=== PATIENT | female | born 1980 | race Caucasian/White ===

== ENCOUNTER 2022-08-07 13:38 | Emergency (ER) | payer BC, SELFPAY ==
[2022-08-07 14:05] VITALS: BP 121/79; PULSE 107; RESP 16; TEMP 36.5; O2SAT 97; BMI 27.4
--- NOTE | 2022-08-07 14:10 | ED_ITS ---
HPI - General Adult General Time Seen by Provider: 14:10 Date Seen: 08/07/22 Chief complaint: Chest Pain Stated complaint: R arm numb, headache, chest discomfort Time Seen by Provider: 08/07/22 14:03 Source: patient and RN notes reviewed Mode of arrival: ambulatory Limitations: no limitations History of Present Illness HPI narrative: Patient is a 41-year-old female that awoke with her right arm completely numb and this morning. She felt she just slept on it wrong. Throughout the day though she has felt the return of a pins and needles sensation at times. She feels like she needs to move the elbow in feels like she is feeling like she needs to move the arm. She admits she has anxiety and just at times feels like she has to take a deep breath. She cannot say that there is any chest pain or chest discomfort with this. She also awoke with significant headache. It is in a band around the head. She does get headaches. She has chronic neck pain, states her neck hurts every day. Denies any trauma. Has not been sick with any recent cough or cold symptoms. She was on a trip in about 2 weeks after coming home from that, some of the people were coming down with COVID. She had no symptoms but tested when they were positive and she herself was not. 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 She still has the tinnitus. No tobacco use, minimal social alcohol use. Related Data Home Medications Medication Instructions Recorded Confirmed multivitamin (Daily Multi-Vitamin 1 tab PO DAILY 08/07/22 08/07/22 tablet) Allergies Allergy/AdvReac Type Severity Reaction Status Date / Time No Known Drug Allergies Allergy Verified 08/07/22 14:04 Review of Systems Status of ROS: Reports: 10 or more systems reviewed and unremarkable except as noted in History and below PFSH PFS Social History Smoking Status: Never smoker Do you use any of these nicotine containing products: None Second hand tobacco smoke exposure: No How often do you have a drink containing alcohol: never How often do you have six or more drinks on one occasion: Never AUDIT-C Alcohol total score: 0 Non-prescribed substance use: denies use service: No Exam Const: Vital Signs, click to edit/add: Vital Signs - 24 hr 08/07/22 14:05 08/07/22 14:21 Temperature 97.7 F Pulse Rate [Right Pulse Oximeter] 107 H Respiratory Rate 16 Blood Pressure [Ri ght Upper Arm] 121/79 Pulse Oximetry 97 100 Oxygen Delivery Me thod Room Air Documenting provider has reviewed patient's vital signs: yes Common normals: no apparent distress, average body habitus, oriented x3, no limitations, healthy appearing, alert and well nourished General appearance: cooperative, comfortable, well kempt and well developed HENMT: Common normals: normocephalic, head/scalp atraumatic, hearing grossly normal bilaterally and external nose normal Head and scalp: normocephalic and atraumatic Nose: external nose normal Eye: Common normals: PERRL, EOMs intact bilaterally, conjunctivae normal and no scleral icterus Conjunctiva: conjunctiva(e) normal Pupil: PERRL Neck & C-Spine: Common normals: full ROM, no lymphadenopathy, supple, no meningeal signs, no JVD and thyroid normal Thyroid: thyroid normal Resp: Common normals: normal respiratory effort, no retractions, no use of accessory muscles and clear to auscultation bilaterally Auscultation: clear to auscultation bilaterally Cardio: Common normals: no JVD, regular rate, regular rhythm, S1 normal heart sound, S2 normal heart sound, no gallops, no clicks and no murmurs Rate: regular rate Rhythm: regular rhythm Heart sounds: S1 normal and S2 normal GI: Common normals: Normal to inspection, nondistended, normoactive bowel sounds present, soft to palpation, non-tender, no hepatosplenomegaly and no masses Palpation: soft and no hepatosplenomegaly Extremity: Other: She has full range of motion of her right arm, strength is normal and symmetrical in both upper extremities. She has good radial pulses bilaterally. She has normal light touch sensation bilaterally. Both hands have symmetric warmth, normal cap refill. Neuro: Common normals: oriented x3 Sensorium/orientation: alert Meningeal signs: no meningeal signs Psych: Appearance: well kempt Course Course Hospital Course: We have a patient presenting with her arm being asleep this morning upon awakening and some intermittent return or possibly residual neurologic symptoms. She has no associated headache currently with a history of headaches. She has her chest symptoms where she describes it as a hollow feeling, needing to catch her breath at times or take a deep breath. I agree that that certainly could be anxiety but have reviewed with her that it is easy enough to look at her troponin. I have already visualized her initial EKG and it is normal. Will have her on cardiac monitoring and pulse oximetry. Given that she has had surgery to remove her acoustic neuroma, her right arm symptoms which certainly seem like it is a peripheral issue, do think head CT is indicated to rule out any acute pathology. Have reviewed with her that we may need to do CT angio head and neck possibly in this workup. Will be doing a D-dimer. Reevaluation(s) Reevaluation #1: Reviewed with patient her CT findings. Reviewed that the cerebellar tonsils are commented to be low lying. My presumption is that with her MRIs of her head, this should have been picked up if she did have a Chiari malformation. She does have a headache disorder. Will give her a copy of her CT report and have discussed that she should follow up with Neurology. reviewed normal labs including troponin and D-dimer. Time: 17:05 Vital Signs Vital signs: Initial Vital Signs Temperature 97.7 F 08/07/22 14:05 Temperature Source Temporal Artery Scan 08/07/22 14:05 Pulse Rate 107 H 08/07/22 14:05 Respiratory Rate 16 08/07/22 14:05 Blood Pressure 121/79 08/07/22 14:05 Blood Pressure Mean 93 08/07/22 14:05 Pulse Oximetry 97 08/07/22 14:05 Oxygen Delivery Method Room Air 08/07/22 14:05 Vital Signs Temperature 97.7 F 08/07/22 14:05 Pulse Rate 107 H 08/07/22 14:05 Respiratory Rate 16 08/07/22 14:05 Blood Pressure 121/79 08/07/22 14:05 Pulse Oximetry 97 08/07/22 14:05 Oxygen Delivery Method Room Air 08/07/22 14:05 Temperature 97.7 F 08/07/22 14:05 Pulse Rate 107 H 08/07/22 14:05 Respiratory Rate 16 08/07/22 14:05 Blood Pressure 121/79 08/07/22 14:05 Pulse Oximetry 100 08/07/22 14:21 Oxygen Delivery Method Room Air 08/07/22 14:05 Medical Decision Making Lab Data Labs: Lab Results 08/07/22 08/07/2208/07/23 Range/Units 14:22 14:30 14:40 WBC 5.23 (4.50-11.00) K/uL RBC 3.97 L (4.00-5.20) m/uL Hgb 12.8 (12.0-16.0) gm/dL Hct 37.9 (33.0-51.0) % MCV 96 (80-100) fL MCH 32 (26-34) pg MCHC 34 (32-36) gm/dL RDW Coeff of Gisel 12.4 (11.5-15.5) % Plt Count 187 (140-440) K/uL Neut % (Auto) 58.1 (42.0-72.0) % Lymph % (Auto) 30.6 (20-44) % [place] % (Auto) 7.8 (0.0-11.0) % Eos % (Auto) 2.9 (0.0-7.0) % Baso % (Auto) 0.4 (0.0-3.0) % Neut # (Auto) 3.04 (1.7-7.0) K/uL Lymph # (Auto) 1.60 (0.90-2.90) K/uL [place] # (Auto) 0.40 (0.00-0.90) K/UL Eos # (Auto) 0.15 (0.00-0.50) K/uL Baso # (Auto) 0.02 (0.00-0.30) K/uL D-Dimer Quant (PE/DVT) < 0.27 (0.00-0.50) ug/ml Sodium 137 (135-149) mmol/L Potassium 3.7 (3.6-5.1) mmol/L Chloride 105 (96-114) mmol/L Carbon Dioxide 26 (20-32) mmol/L BUN 17 (5-24) mg/dL Creatinine 0.8 (0.5-1.5) mg/dL Estimated Creat Clear 95.24 Estimated GFR 96 ml/min Glucose 130 H (60-115) mg/dL Calcium 8.6 (8.4-10.6) mg/dL Total Bilirubin 0.5 (0.1-1.5) mg/dL AST 20 (12-35) U/L ALT 20 (4-35) U/L Alkaline Phosphatase 52 (40-150) U/L C-Reactive Protein 0.5 (0.5-1.0) mg/dL Total Protein 7.0 (6.0-8.3) g/dL Albumin 4.3 (3.3-5.0) g/dL POC Troponin I 0.00 L (0.01-0.04) ng/ml Imaging Data CT scan - head: Attestation: I have reviewed the pertinent imaging results. My impression: Have visualized in do not see any acute bleed or mass, await Radiology over- read. Radiologist's impression: Patient: [facility] Facility:?[facility] Patient ID:?[id number] :?[id number] Study:?CT Head w/o Contrast-08/07/2022 3:06:12 PM Ordering Physician:Sb Camarillo Final Report: INDICATION: Headache, right arm numbness/tingling. History of right acoustic neuroma. COMPARISON: None available. TECHNIQUE: CT of the head without IV contrast. Coronal and sagittal reconstructions. FINDINGS: No intracranial hemorrhage, mass effect, or evidence of acute infarct. No midline shift. No abnormal extra-axial fluid collections. Normal caliber ventricular system. Low lying cerebellar tonsils with crowding in the foramen magnum. Orbits and extraocular muscles are symmetric. The visualized paranasal sinuses and mastoid air cells are clear. Status post right retromastoid craniotomy for history of acoustic neuroma resection. No acute fracture identified. Soft tissues are unremarkable. IMPRESSION: 1. No acute intracranial findings. 2. Status post right retromastoid craniotomy for history of acoustic neuroma resection. 3. Mild cerebellar tonsillar ectopia. Please note that all CT scans at this facility use dose modulation, iterative reconstruction, and/or weight-based dosing when appropriate to reduce radiation dose to as low as reasonably achievable. Dictated by Alicia Torres MD @ 08/07/2022 3:40:40 PM (Electronic Signature) Chest x-ray: Attestation: I have reviewed the pertinent imaging results. My impression: No acute pathology on my preliminary review. Radiologist's impression: [facility]: [facility] Facility:?[facility] Patient ID:?[id number] :?1980 Study:?XRay Chest 1 view-08/07/2022 2:48:31 PM Ordering Physician:Sb Camarillo Final Report: INDICATION: Difficulty catching breath. TECHNIQUE: Chest 1 view. COMPARISON: Chest radiograph 05/18/2020. FINDINGS: No focal consolidation, pleural effusion, or pneumothorax. Normal heart size and pulmonary vascularity. The bones are unremarkable. IMPRESSION: No acute cardiopulmonary findings. Dictated by Alicia Torres MD @ 08/07/2022 3:15:19 PM (Electronic Signature) ECG Data Attestation: I personally reviewed and interpreted this ECG as follows: ( Normal sinus rhythm, 65 beats per minute. No pattern of ST segment changes or T-wave changes, isolated flipped T-waves V1. QT corrected 418 milliseconds.) Critical Care Time Critical Care Time Critical Care Time: No Discharge Plan Discharge Clinical Impression: Headache, Numbness and tingling of right arm Patient Disposition: Home, Self-Care Condition: Stable Instructions: Paresthesia (ED), General Headache (ED) Additional Instructions: Your arm symptoms are very likely just residual from a compression of the nerve in the arm when you slept. Try to avoid putting compression on the nerve in this arm if you can at all help doing so when you sleep. I would recommend seen if any of your prior MRIs of your head show any concerns for the cerebellum, specifically the tonsils of the cerebellum lying low in the canal. If there is comment of this some prior MRIs, would take MRI and CT reports and follow-up with Neurology. Recommend getting a follow-up appointment with your primary care provider to review CT and see if Neurology referral is recommended. Activity Level: Activity as Tolerated Prescriptions: No Action multivitamin [Daily Multi-Vitamin] Tablet 1 tab PO DAILY Stand Alone Forms: MyHealth Info Instructions
[2022-08-07 14:21] VITALS: O2SAT 100
--- NOTE | 2022-08-07 14:21 | CRLHL7_ITS ---
For Patients: As a result of the Century Cures Act, medical imaging exams and procedure reports are released immediately into your electronic medical record. You may view this report before your referring provider. If you have questions, please contact your health care provider. INDICATION: Difficulty catching breath. TECHNIQUE: Chest 1 view. COMPARISON: Chest radiograph 05/18/2020. FINDINGS: No focal consolidation, pleural effusion, or pneumothorax. Normal heart size and pulmonary vascularity. The bones are unremarkable. IMPRESSION: No acute cardiopulmonary findings. Dictated by Alicia Torres MD @ 08/07/2022 3:15:19 PM (Electronically Signed)
--- NOTE | 2022-08-07 14:22 | CRLHL7_ITS ---
For Patients: As a result of the Century Cures Act, medical imaging exams and procedure reports are released immediately into your electronic medical record. You may view this report before your referring provider. If you have questions, please contact your health care provider. INDICATION: Headache, right arm numbness/tingling. History of right acoustic neuroma. COMPARISON: None available. TECHNIQUE: CT of the head without IV contrast. Coronal and sagittal reconstructions. FINDINGS: No intracranial hemorrhage, mass effect, or evidence of acute infarct. No midline shift. No abnormal extra-axial fluid collections. Normal caliber ventricular system. Low lying cerebellar tonsils with crowding in the foramen magnum. Orbits and extraocular muscles are symmetric. The visualized paranasal sinuses and mastoid air cells are clear. Status post right retromastoid craniotomy for history of acoustic neuroma resection. No acute fracture identified. Soft tissues are unremarkable. IMPRESSION: 1. No acute intracranial findings. 2. Status post right retromastoid craniotomy for history of acoustic neuroma resection. 3. Mild cerebellar tonsillar ectopia. Please note that all CT scans at this facility use dose modulation, iterative reconstruction, and/or weight-based dosing when appropriate to reduce radiation dose to as low as reasonably achievable. Dictated by Alicia Torres MD @ 08/07/2022 3:40:40 PM (Electronically Signed)
[2022-08-07 14:52] LABS: Basophils Absolute Auto 0.02 K/uL (0.00-0.30); Basophils Percent Auto 0.4 % (0.0-3.0); Eosinophils Absolute Auto 0.15 K/uL (0.00-0.50); Eosinophils Percent Auto 2.9 % (0.0-7.0); Hematocrit 37.9 % (33.0-51.0); Hemoglobin* 12.8 gm/dL (12.0-16.0); Immature Granulocytes Abs Auto 0.01 K/uL (0.00-0.30); Immature Granulocytes Pct Auto 0.2 %; Lymphocytes Percent Auto 30.6 % (20-44); Mean Corpuscular HGB Conc 34 gm/dL (32-36); Mean Corpuscular Hemoglobin 32 pg (26-34); Mean Corpuscular Volume 96 fL (80-100); Monocytes Percent Auto 7.8 % (0.0-11.0); Neutrophils Absolute Auto 3.04 K/uL (1.7-7.0); Neutrophils Percent Auto 58.1 % (42.0-72.0); Platelet Count* 187 K/uL (140-440); RDW Coefficient of Variation % 12.4 % (11.5-15.5); Red Blood Count 3.97 m/uL (4.00-5.20); White Blood Count* 5.23 K/uL (4.50-11.00)
[2022-08-07 14:53] LABS: Slide Review Reflex No
[2022-08-07 15:03] LABS: Albumin* 4.3 g/dL (3.3-5.0); Chloride* 105 mmol/L (96-114)
[2022-08-07 15:04] LABS: Potassium* 3.7 mmol/L (3.6-5.1); Sodium* 137 mmol/L (135-149)
[2022-08-07 15:06] LABS: Bilirubin Total* 0.5 mg/dL (0.1-1.5); Creatinine* 0.8 mg/dL (0.5-1.5); Est. Creatinine Clearance* 95.24; Estimated Glomerular Filt Rate 96 ml/min
[2022-08-07 15:07] LABS: Alanine Aminotransferase* 20 U/L (4-35); Alkaline Phosphatase* 52 U/L (40-150); Aspartate Amino Transferase* 20 U/L (12-35); Blood Urea Nitrogen* 17 mg/dL (5-24); Calcium* 8.6 mg/dL (8.4-10.6); Carbon Dioxide* 26 mmol/L (20-32); Glucose* 130 mg/dL (60-115)
[2022-08-07 15:09] LABS: C Reactive Protein* 0.5 mg/dL (0.5-1.0)
[2022-08-07 15:14] LABS: D Dimer Quantitative* < 0.27 ug/ml (0.00-0.50)
== END 2022-08-07 18:29 | disposition home or self-care (01) ==
PROVIDERS: Emergency Provider Family Medicine; PCP Physician Assistant Medical
DX: R51.9 Headache, unspecified (principal); R20.0 Anesthesia of skin
CPT/HCPCS: 36415; 70450; 71045; 80053; 84484; 85025; 85379; 86140; 93005; 94761; 99284; 99285

== ENCOUNTER 2022-11-14 09:56 | Outpatient (CLI) | payer BC, SELFPAY | END 2022-11-14 09:57 | disposition home or self-care (01) | LOC: NFLDREF 11-15 07:15 | PROVIDERS: PCP Physician Assistant Medical; Referring Provider Physician Assistant Medical; Visit Provider Physician Assistant Medical | DX: Z00.00 Encounter for general adult medical examination without abnormal findings (principal); E78.5 Hyperlipidemia, unspecified; R63.5 Abnormal weight gain; M25.50 Pain in unspecified joint; L98.9 Disorder of the skin and subcutaneous tissue, unspecified | CPT/HCPCS: 80053; 80061; 82306; 84443 ==

== ENCOUNTER 2023-01-22 17:38 | Outpatient (CLI) | payer BC, SELFPAY ==
--- NOTE | 2023-01-22 18:00 | CRLHL7_ITS ---
For Patients: As a result of the Century Cures Act, medical imaging exams and procedure reports are released immediately into your electronic medical record. You may view this report before your referring provider. If you have questions, please contact your health care provider. BILATERAL SCREENING MAMMOGRAM WITH COMPUTER-AIDED DETECTION AND TOMOSYNTHESIS TECHNIQUE: CC and MLO views were obtained. These mammographic images have been obtained using full-field digital technique. These mammographic images were interpreted with the benefit of computer-aided detection. Breast Tomosynthesis was used in this interpretation. COMPARISON FILM: 10/28/2020. FINDINGS: The breasts are heterogeneously dense, which may obscure small masses IMPRESSION: There is no radiographic evidence for malignancy. ASSESSMENT: BI-RADS Category 1: Negative RECOMMENDATION: Routine screening mammogram in 1 year. A lay language report of this examination will be provided to the patient. Chase Brown M.D. Diagnostic Radiologist [email or web address] JENNI/Dictated by: Chase Brown MD @ 01/23/2023 10:53:00 AM (Electronically Signed)
== END 2023-01-22 17:39 | disposition home or self-care (01) ==
LOC: MAMMO 17:39
PROVIDERS: PCP Physician Assistant Medical; Visit Provider Physician Assistant Medical
DX: Z12.31 Encounter for screening mammogram for malignant neoplasm of breast (principal); R92.2 Inconclusive mammogram
CPT/HCPCS: 77063; 77067

== ENCOUNTER 2024-01-03 08:14 | Outpatient (CLI) | payer BC, SELFPAY ==
--- OUTSIDE RECORDS SUMMARY | 2024-01-09 05:41 | XMS_ITS | Encounter Summary ---
Author Organization [facility] Address [address] [place] [address]. [place] [address] Care Team Providers Care Museum Docent Name Role Phone Jeniffer Jeff PA-C Primary Care Provider Nilo Pate MD Unavailable [phone] Mahesh Shane DPM Unavailable [phone] Iraida Bustillo MD Unavailable [phone] Christo Trejo MD Unavailable [phone] Genna Jo MD Unavailable [phone] Genna Jo MD Unavailable [phone] Reason for Visit * Reason Onset Date Comments Appointment 04/05/2020 Encounter Details Date Type Department Care Team (Late st Contact Info) Description 04/05/2020 Telephone [facility] [place] [address] [facility] [address] 4th [place] [address] Iraida Bustillo MD 420 [facility] 396 [place] [address] Appointment Social History Tobacco Use Types [...] Taken: Other: ent Travel Screening: Not Applicable MCORN SORTER documented in this encounter Plan of Treatment Not on file documented as of this encounter Visit Diagnoses Not on filedocumented in this encounter Additional Health Concerns Assessment Noted Time PHQ-9 Depression Total Score: 10 019 8:11 AM CDT documented as of this encounter Care Teams Museum Docent Relationship Specialty Start Date End Date Jeniffer Jeff PA-C [facility] [address] [place] [address] PCP - General Physician Welder Metal Fab 02/05/19 Nilo Pate MD [address] [place] [address] Assigned Neuroscience Provider 02/19/20 11/10/21 Mahesh Shane DPM [id number] [place] [address] [address] [place] [address] Assigned Musculoskeletal Provider 02/19/20 05/06/21 Iraida Bustillo MD [address] [place] [address] 396 [place] [address] Assigned Surgical Provider 02/19/20 03/18/21 Christo Trejo MD [address] [place], [place] [address] Assigned OBGYN Provider 02/19/2003/18 Genna Jo MD [address] [id number] Facial Plastic and Reconstructive Surgery 10/27/20 Genna Jo MD [address] [phone] Assigned Surgical Provider 03/19/21 documented as of this encounter
--- OUTSIDE RECORDS SUMMARY | 2024-01-09 05:41 | XMS_ITS | Encounter Summary ---
Author Organization [facility] Address [address] [place] [address]. [place] [address] Care Team Providers Care Record Librarian Name Role Phone Jeniffer Jeff PA-C Primary Care Provider Genna Jo MD Unavailable [phone] Genna Jo MD Unavailable [phone] Encounter Details Date Type Department Care Team (Late st Contact Info) Description 11/06/2022 [facility] Medical Advice [facility] [address] 4th [place] [address] Era Allen RN Social History [...] documented as of this encounter Care Teams Record Librarian Relationship Specialty Start Date End Date Jeniffer Jeff PA-C [facility] [address] [place] [address] PCP - General Physician Paper Cone Grader 02/05/19 Genna Jo MD 420 [facility] [address] [place] [address] Facial Plastic and Reconstructive Surgery 10/27/20 Genna Jo MD 420 [facility] [address] [place] [address] Assigned Surgical Provider 03/19/21 documented as of this encounter
--- OUTSIDE RECORDS SUMMARY | 2024-01-09 05:41 | XMS_ITS | Encounter Summary ---
Author Organization [facility] Address [address] [place] [address] Care Team Providers Care Suppression Crew Leader Name Role Phone Jeniffer Jeff PA-C Primary Care Provider Nilo Pate MD Unavailable [phone] Mahesh Shane DPM Unavailable [phone] Iraida Bustillo MD Unavailable [phone] Christo Trejo MD Unavailable [phone] Genna Jo MD Unavailable [phone] Genna Jo MD Unavailable [phone] Encounter Details Date Type Department Care Team (Late st Contact Info) Description 06/05/2019 [facility] [place] [facility] Audiology [address] [address] Kaylen Chairez, AuD 909 [place] [address] Social History Tobacco Use Types [...] documented as of this encounter Care Teams Suppression Crew Leader Relationship Specialty Start Date End Date Jeniffer Jeff PA-C [facility] [address] [place] [address] PCP - General Physician Blacktop Spreader 02/05/19 Nilo Pate MD [address] [place] [address] 789345 Assigned Neuroscience Provider 02/19/20 11/10/21 Mahesh Shane DPM [address] [facility] [address] [place] [address] Assigned Musculoskeletal Provider 02/19/20 05/06/21 Iraida Bustillo MD [address] [place] [address] 750875 Assigned Surgical Provider 02/19/20 03/18/21 Christo Trejo MD [address] [place] [address] 804944 Assigned OBGYN Provider 02/19/2003/18 Genna Jo MD [address] [place] [address] 566735 Facial Plastic and Reconstructive Surgery 10/27/20 Genna Jo MD [address] [place] [address] 396 [place] [address] Assigned Surgical Provider 03/19/21 documented as of this encounter
--- OUTSIDE RECORDS SUMMARY | 2024-01-09 05:41 | XMS_ITS | Clinical Summary ---
Author Organization [facility] Address [address] [place] [address] Care Team Providers Care Palliative Nurse Name Role Phone Jeniffer Jeff PA-C Primary Care Provider Genna Jo MD Unavailable [phone] Genna Jo MD Unavailable [phone] Allergies Active Allergy Reactions Criticality Noted Date [...] Comments Blood Pressure 111/75 06/13/2022 2:33 PM FITTING ROOM SUPERVISOR Pulse 78 06/13/2022 2:33 PM FITTING ROOM SUPERVISOR Temperature 37 ??C (98.6 ??F) 12/07/2020 2:17 PM CDT Respiratory Rate 16 05/10/2020 4:08 PM FITTING ROOM SUPERVISOR Oxygen Saturation 97% 06/13/2022 2:33 PM FITTING ROOM SUPERVISOR Inhaled Oxygen Concentration - - Weight 79.8 kg (176 lb) 06/13/2022 2:33 PM FITTING ROOM SUPERVISOR Height 172.7 cm (5' 8) 06/13/2022 2:33 PM FITTING ROOM SUPERVISOR Body Mass Index 26.76 06/13/2022 2:33 PM FITTING ROOM SUPERVISOR Plan of Treatment Health Maintenance Due Date [...] AM CDT Iraida Bustillo MD LAB - [facility] PO CT POINT OF CARE TEST, GLUCOSE from Last 3 Months or Most Recently Relevant to Health Maintenance Care Teams Palliative Nurse Relationship Specialty Start Date End Date Jeniffer Jeff PA-C [facility] [address] [place] [address] PCP - General Physician Presser Machine 02/05/19 Genna Jo MD [address] [place] [address] 926665 Facial Plastic and Reconstructive Surgery 10/27/20 Genna Jo MD [address] [place] [address] [id number] Assigned Surgical Provider 03/19/21
--- OUTSIDE RECORDS SUMMARY | 2024-01-09 05:41 | XMS_ITS | Referral Summary ---
Author Organization [facility] Address [address] [place] [address]. [place] [address] Care Team Providers Care Weatherstrip Machine Operator Name Role Phone Jeniffer Jeff PA-C Primary Care Provider Genna Jo MD Unavailable [phone] Genna Jo MD Unavailable [phone] Encounters Date Type Department Care Team Description [...] Comments Blood Pressure 111/75 06/13/2022 2:33 PM INSURANCE VERIFICATION CLERK Pulse 78 06/13/2022 2:33 PM INSURANCE VERIFICATION CLERK Temperature 37 ??C (98.6 ??F) 12/07/2020 2:17 PM CDT Respiratory Rate 16 05/10/2020 4:08 PM INSURANCE VERIFICATION CLERK Oxygen Saturation 97% 06/13/2022 2:33 PM INSURANCE VERIFICATION CLERK Inhaled Oxygen Concentration - - Weight 79.8 kg (176 lb) 06/13/2022 2:33 PM INSURANCE VERIFICATION CLERK Height 172.7 cm (5' 8) 06/13/2022 2:33 PM INSURANCE VERIFICATION CLERK Body Mass Index 26.76 06/13/2022 2:33 PM INSURANCE VERIFICATION CLERK Plan of Treatment Not on file Procedures [...] 02/07/2019 6:20 AM CDT Iraida Bustillo MD [facility] POINT OF CARE TEST, GLUCOSE from Last 3 Months or Most Recently Relevant to Health Maintenance Care Teams Weatherstrip Machine Operator Relationship Specialty Start Date End Date Jeniffer Jeff PA-C [facility] [address] [place] [address] PCP - General Physician English Language Arts Teacher 02/05/19 Genna Jo MD [address] [place] [address] Facial Plastic and Reconstructive Surgery 10/27/20 Genna Jo MD [address] [place] [address] Assigned Surgical Provider 03/19/21
--- OUTSIDE RECORDS SUMMARY | 2024-01-09 05:41 | XMS_ITS | Clinical Summary ---
Author Organization [email or web address] Address [place], [place] [address] Care Team Providers Care Mail Agent Name Role Phone Jeniffer Jeff PA-C Primary Care Provider [phone] Allergies Active Allergy Reactions Criticality Noted Date [...] Comments Blood Pressure 120/80 05/05/2020 12:59 PM ELECTRICAL APPRENTICE Pulse 67 05/05/2020 12:59 PM ELECTRICAL APPRENTICE Temperature 36.5 ??C (97.7 ??F) 05/05/2020 12:[address] Respiratory Rate 12 05/05/2020 12:59 PM ELECTRICAL APPRENTICE Oxygen Saturation 100% 05/05/2020 12:59 PM ELECTRICAL APPRENTICE Inhaled Oxygen Concentration - - Weight 81.6 kg (180 lb) 05/05/2020 12:59 PM ELECTRICAL APPRENTICE Height 172.7 cm (5' 8) 05/05/2020 12:59 PM ELECTRICAL APPRENTICE Body Mass Index 27.37 05/05/2020 12:59 PM ELECTRICAL APPRENTICE Plan of Treatment Health Maintenance Due Date [...] 16 Negative Negative 08/09/2021 11:24 AM CDT [facility] TYPE 18 Negative Negative 08/09/2021 11:24 AM CDT [facility] OTHER HIGH RISK TYPES Negative Negative 08/09/2021 11:24 AM CDT [facility] Other (Cervical/Vagina l) 08/04/2021 12:00 PM CDT 08/08/2021 7:34 AM CDT Narrative [facility] - 08/09/2021 11:24 AM CDT HPV types 16, 18, 31, 33, 35, 39, 45, 51, 52, 56, 58, 59, 66 and 68 DNA were undetectable or below the pre-set threshold. Methodology: Lilia Naty 4800 HPV Test Jeniffer Jeff PA-C MICROBIOLOGY [facility] [address] [place] [address], [place] from Last 3 Months or Most Recently Relevant to Health Maintenance Care Teams Mail Agent Relationship Specialty Start Date End Date Jeniffer Jeff PA-C [address] [place] [address] PCP - General Emergency Medicine 04/24/20
--- OUTSIDE RECORDS SUMMARY | 2024-01-09 05:41 | XMS_ITS | Encounter Summary ---
Author Organization [place] Address [address] [place] [address]. [place] [address] Care Team Providers Care Physician General Internal Medicine Name Role Phone Jeniffer Jeff PA-C Primary Care Provider Nilo Pate MD Unavailable + [phone] Mahesh Shane DPM Unavailable [phone] Iraida Bustillo MD Unavailable Christo Trejo MD Unavailable [phone] Genna Jo MD Unavailable [phone] Genna Jo MD Unavailable [phone] Encounter Details Date Type Department Care Team (Late st Contact Info) Description 12/20/2020 [facility] Medical Advice [facility] [place] 8[address] [facility] [address] 4th [place] [address] Genna Jo MD 420 [facility] 396 [place] [address] Social History Tobacco Use Types [...] documented as of this encounter Care Teams Physician General Internal Medicine Relationship Specialty Start Date End Date Jeniffer Jeff PA-C [facility] [address] [place] [address] PCP - General Physician Padding Machine Operator 02/05/19 Nilo Pate MD 909 [place], [place] [address] Assigned Neuroscience Provider 02/19/20 11/10/21 Mahesh Shane DPM [address] [facility] [address] [place] [address] Assigned Musculoskeletal Provider 02/19/20 05/06/21 Iraida Bustillo MD 420 [facility] 396 [place], [place] 6[address] Assigned Surgical Provider 02/19/20 03/18/21 Christo Trejo MD [address] [place] [address] 400 [place], [place] [address]234 Assigned OBGYN Provider 02/19/2003/18 Genna Jo MD [address] [id number] Facial Plastic and Reconstructive Surgery 10/27/20 Genna Jo MD [address] 395445 Assigned Surgical Provider 03/19/21 documented as of this encounter
--- OUTSIDE RECORDS SUMMARY | 2024-01-09 05:41 | XMS_ITS | Encounter Summary ---
Author Organization [facility] Address [address] [place] [address] Care Team Providers Care Build Master Name Role Phone Jeniffer Jeff PA-C Primary Care Provider Genna Jo MD Unavailable [phone] Genna Jo MD Unavailable [phone] Encounter Details Date Type Department Care Team [...] documented as of this encounter Care Teams Build Master Relationship Specialty Start Date End Date Jeniffer Jeff PA-C [facility] [address] [place], [place] [id number] PCP - General Physician Paperhanger Assistant 02/05/19 Genna Jo MD [address] [address] Facial Plastic and Reconstructive Surgery 10/27/20 Genna Jo MD [address] [address] Assigned Surgical Provider 03/19/21 documented as of this encounter
== END 2024-01-03 08:15 | disposition home or self-care (01) ==
LOC: NFLDREF 01-09 05:39
PROVIDERS: PCP Physician Assistant Medical; Referring Provider Physician Assistant Medical; Visit Provider Physician Assistant Medical
DX: Z00.00 Encounter for general adult medical examination without abnormal findings (principal); E78.5 Hyperlipidemia, unspecified; Z13.0 Encounter for screening for diseases of the blood and blood-forming organs and certain disorders involving the immune mechanism
CPT/HCPCS: 80053; 80061

== ENCOUNTER 2024-01-06 13:10 | Outpatient (CLI) | payer BC, SELFPAY ==
--- OUTSIDE RECORDS SUMMARY | 2024-01-06 13:12 | XMS_ITS | Referral Summary ---
Author Organization [facility] Address [address] [place] [address]. [place] [address] Care Team Providers Care Client Development Consultant Name Role Phone Jeniffer Jeff PA-C Primary Care Provider Genna Jo MD Unavailable [phone] Genna Jo MD Unavailable [phone] Encounters Date Type Department Care Team Description 11/29/2023 Travel from Last 3 Months Allergies Active Allergy Reactions Criticality Noted Date Comments Ondansetron Nausea 02/05/2019 Medications Medication Sig Dispensed Refills Start Date End Date Status psyllium (METAMUCIL) WAFR Take 2 Wafers by mouth daily Active Hospital, Clinic, or Other Facility Administered Medication Ordered Dose Route Frequency Start Date End Date Status botulinum toxin type A (BOTOX) 100 units injection 50 UnitsIndications:Hemifac ial spasm of right side of face 50 Units IM EVERY 3 MONTHS 12/22/2020 Active Active Problems Problem Noted Date Diagnosed Date 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 Acoustic neuroma 02/05/2019 Vestibular schwannoma 03/17/2013 Immunizations Name Administration Dates Next Due Influenza Vaccine >6 months,quad, PF 02/06/2019 Social History Tobacco Use Types Packs/Day Years Used Date Smoking Tobacco: Never Smokeless Tobacco: Never Tobacco Cessation:Counseling Given: No Alcohol Use Standard Drinks/Week Comments Yes 0 (1 standard drink = 0.6 oz pur e alcohol) Social PHQ-2 Answer Date Recorded PHQ-2 Score 0 06/14/2021 Adolescent Education Answer Date Record ed Getting School Help Needed Not on file 01/18 Sex and Gender Information Value Date Recorded Sex Assigned at Female 10/22/2020 2:38 PM CDT Gender Identity Female 10/22/2020 2:38 PM CDT Sexual Orientation Not on file Last Filed Vital Signs Vital Sign Reading Time Taken Comments Blood Pressure 111/75 06/13/2022 2:33 PM CONSERVATION SCIENTIST Pulse 78 06/13/2022 2:33 PM CONSERVATION SCIENTIST Temperature 37 ??C (98.6 ??F) 12/07/2020 2:17 PM CDT Respiratory Rate 16 05/10/2020 4:08 PM CONSERVATION SCIENTIST Oxygen Saturation 97% 06/13/2022 2:33 PM CONSERVATION SCIENTIST Inhaled Oxygen Concentration - - Weight 79.8 kg (176 lb) 06/13/2022 2:33 PM CONSERVATION SCIENTIST Height 172.7 cm (5' 8) 06/13/2022 2:33 PM CONSERVATION SCIENTIST Body Mass Index 26.76 06/13/2022 2:33 PM CONSERVATION SCIENTIST Plan of Treatment Not on file Procedures Procedure Name Priority Date/Time Associated Diagnosis Comments HC CHEMODENERVATION MUSCLE NECK UNILAT Routine 11/29/2023 10:28 AM CDT 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 Spasmodic torticollis HC CHEMODENERVATION, FACE NERVE MUSCLE Routine 11/29/2023 10:28 AM CDT 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 GLUCOSE BY METER Routine 02/07/2019 6:05 AM CDT Acute post-operative pain from Last 3 Months or Most Recently Relevant to Health Maintenance Results * Glucose by meter (02/07/2019 6:05 AM CDT) Glucose 97 70 - 99 mg/dL 02/07/2019 6:20 AM CDT POINT OF CARE TEST, GLUCOSE 02/07/2019 6:05 AM CDT 02/07/2019 6:20 AM CDT Iraida Bustillo MD [facility] POINT OF CARE TEST, GLUCOSE from Last 3 Months or Most Recently Relevant to Health Maintenance Care Teams Client Development Consultant Relationship Specialty Start Date End Date Jeniffer Jeff PA-C [facility] [address] [place] [address] PCP - General Physician [employer] 02/05/19 Genna Jo MD [address] [place] [id number] Facial Plastic and Reconstructive Surgery 10/27/20 Genna Jo MD [address] [place] [id number] Assigned Surgical Provider 03/19/21
--- OUTSIDE RECORDS SUMMARY | 2024-01-06 13:12 | XMS_ITS | Clinical Summary ---
Author Organization [facility] Address [place], [place] [address] Care Team Providers Care Spout Liner Helper Name Role Phone Jeniffer Jeff PA-C Primary Care Provider [phone] Allergies Active Allergy Reactions Criticality Noted Date Comments Ondansetron Nausea Only 02/05/2019 Medications No known medications Social History Tobacco Use Types Packs/Day Years Used Date Smoking Tobacco: Never Smokeless Tobacco: Never Tobacco Cessation:Counseling Given: No Alcohol Use Standard Drinks/Week Comments Yes 0 (1 standard drink = 0.6 oz pur e alcohol) Ocassionally Sex and Gender Information Value Date Recorded Sex Assigned at Not on file Gender Identity Not on file Sexual Orientation Not on file Obstetrics History Last Filed Vital Signs Vital Sign Reading Time Taken Comments Blood Pressure 120/80 05/05/2020 12:59 PM MEAT HANGER Pulse 67 05/05/2020 12:59 PM MEAT HANGER Temperature 36.5 ??C (97.7 ??F) 05/05/2020 12:[address] Respiratory Rate 12 05/05/2020 12:59 PM MEAT HANGER Oxygen Saturation 100% 05/05/2020 12:59 PM MEAT HANGER Inhaled Oxygen Concentration - - Weight 81.6 kg (180 lb) 05/05/2020 12:59 PM MEAT HANGER Height 172.7 cm (5' 8) 05/05/2020 12:59 PM MEAT HANGER Body Mass Index 27.37 05/05/2020 12:59 PM MEAT HANGER Plan of Treatment Health Maintenance Due Date Last Done Comments Tdap 1993 Depression screening for age 12+ 1994 HIV for age 15-65 1997 BMI (ht and wt on same day) for age 18+ 2000 Hepatitis C screening for ag e 18-79 2000 Tetanus booster 2002 COVID-19 vaccine series (2022-24 season) 2023 Influenza for age 9-49 12/29/2023 Pap test for age 21-65 08/04/2024 , 08/04/2021, 06/30/2018 Pneumococcal series for age 6-64 Aged Out No longer eligible b ased on patient's age to complete this topic Procedures Procedure Name Priority Date/Time Associated Diagnosis Comments HPV THIN PREP Routine 08/04/2021 12:00 PM CDT from Last 3 Months or Most Recently Relevant to Health Maintenance Results * HPV HIGH RISK (08/04/2021 12:00 PM CDT) TYPE 16 Negative Negative 08/09/2021 11:24 AM CDT [facility] TYPE 18 Negative Negative 08/09/2021 11:24 AM CDT [facility] OTHER HIGH RISK TYPES Negative Negative 08/09/2021 11:24 AM CDT [facility] Other (Cervical/Vagina l) 08/04/2021 12:00 PM CDT 08/08/2021 7:34 AM CDT Narrative [facility] - 08/09/2021 11:24 AM CDT HPV types 16, 18, 31, 33, 35, 39, 45, 51, 52, 56, 58, 59, 66 and 68 DNA were undetectable or below the pre-set threshold. Methodology: Lilia Naty 4800 HPV Test Jeniffer Jeff PA-C MICROBIOLOGY [facility] [address] [place] [address], [place] from Last 3 Months or Most Recently Relevant to Health Maintenance Care Teams Spout Liner Helper Relationship Specialty Start Date End Date Jeniffer Jeff PA-C [address] [place] [address] PCP - General Emergency Medicine 04/24/20
--- OUTSIDE RECORDS SUMMARY | 2024-01-06 13:12 | XMS_ITS | Clinical Summary ---
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 Encounters Date Type Department Care Team Description 11/29/2023 Travel from Last 3 Months Immunizations Name Administration Dates Next Due Influenza Vaccine >6 months,quad, PF 02/06/2019 Family History Medical History Relation Comments Hyperlipidemia Brother No Known Problems Father Hypertension Mother Rheumatoid Arthritis Mother Relation Status Comments Brother Father Alive Mother Alive Social History Tobacco Use Types Packs/Day Years [...] Comments Blood Pressure 111/75 06/13/2022 2:33 PM PENCIL INSPECTOR Pulse 78 06/13/2022 2:33 PM PENCIL INSPECTOR Temperature 37 ??C (98.6 ??F) 12/07/2020 2:17 PM CDT Respiratory Rate 16 05/10/2020 4:08 PM PENCIL INSPECTOR Oxygen Saturation 97% 06/13/2022 2:33 PM PENCIL INSPECTOR Inhaled Oxygen Concentration - - Weight 79.8 kg (176 lb) 06/13/2022 2:33 PM PENCIL INSPECTOR Height 172.7 cm (5' 8) 06/13/2022 2:33 PM PENCIL INSPECTOR Body Mass Index 26.76 06/13/2022 2:33 PM PENCIL INSPECTOR Plan of Treatment Health Maintenance Due Date Last Done Comments ADVANCE CARE PLANNING 1982 ANNUAL REVIEW OF HM ORDERS 1982 MAMMO SCREENING 1982 YEARLY PREVENTIVE VISIT 1982 HIV SCREENING 1997 HEPATITIS C SCREENING 2000 HEPATITIS B IMMUNIZATION (1 of 3 - 19+ 3-dose series) 2001 GLUCOSE 02/07/2022 02/07/2019, 01/27, 02/06/2019, Additional history exists LIPID 2022 PHQ-2 (once per calendar year) 2023 06/14/2021, 03/08/2021, 12/07/2020, Additional history exists COVID-19 Vaccine ( season) 2023 04/25/2021, 08/04/2020 INFLUENZA VACCINE (#1) 2023 9, 02/27/2017, 01/19/2016, Additional history exists PAP 08/04/2024 08/04/2021, 08/04/2021 DTAP/TDAP/TD IMMUNIZATION (5 - Td or Tdap) 12/06/2029 12/07/2019, 03/05/2016, 09/01/2007, Additional history exists MENINGITIS IMMUNIZATION Aged Out 11/05/2000 No l onger eligible based on patient's age to complete this topic HPV IMMUNIZATION Aged Out No longer e ligible based on patient's age to complete this topic Pneumococcal Vaccine: Pediatrics (0 to 5 Years) and At-Risk Patients (6 to 64 Years) Aged Out No longer eligible based on patient's age to complete this topic RSV MONOCLONAL ANTIBODY Aged Out No l onger eligible based on patient's age to complete this topic [...] 02/07/2019 6:20 AM CDT Iraida Bustillo MD LAB - [facility] PO CT POINT OF CARE TEST, GLUCOSE from Last 3 Months or Most Recently Relevant to Health Maintenance Care Teams Shuttle Spotter Relationship Specialty Start Date End Date Jeniffer Jeff PA-C [facility] [address] [place] [address] PCP - General Physician [employer] Engineer 02/05/19 Genna Jo MD [address] [place] [address] 481995 Facial Plastic and Reconstructive Surgery 10/27/20 Genna Jo MD [address] [place] [address] [id number] Assigned Surgical Provider 03/19/21
--- OUTSIDE RECORDS SUMMARY | 2024-01-06 13:13 | XMS_ITS | Encounter Summary ---
Author Organization [facility] Address [address] [place] [address] Care Team Providers Care Budget Coordinator Name Role Phone Jeniffer Jeff PA-C Primary Care Provider Genna Jo MD Unavailable [phone] Genna Jo MD Unavailable [phone] Encounter Details Date Type Department Care Team (Latest Contact Info) Description 11/29/2023 Travel Social History Tobacco Use Types Packs/Day Years Used Date Smoking Tobacco: Never Smokeless Tobacco: Never Alcohol Use Standard Drinks/Week Comments Yes 0 [...] PM CDT Sexual Orientation Not on file documented as of this encounter Plan of Treatment Not on file documented as of this encounter Visit Diagnoses Not on filedocumented in this encounter Additional Health Concerns Assessment Noted Time PHQ-9 Depression Total Score: 10 019 8:11 AM CDT documented as of this encounter Care Teams Budget Coordinator Relationship Specialty Start Date End Date Jeniffer Jeff PA-C [facility] [address] [place], [place] [id number] PCP - General Physician Fuel Cell Repairer 02/05/19 Genna Jo MD [address] [address] Facial Plastic and Reconstructive Surgery 10/27/20 Genna Jo MD [address] [address] Assigned Surgical Provider 03/19/21 documented as of this encounter
--- OUTSIDE RECORDS SUMMARY | 2024-01-06 13:13 | XMS_ITS | Encounter Summary ---
Author Organization [facility] Address [address] [place] [address] Care Team Providers Care Manager Of International Name Role Phone Jeniffer Jeff PA-C Primary Care Provider Nilo Pate MD Unavailable [phone] Mahesh Shane DPM Unavailable [phone] Iraida Bustillo MD Unavailable [phone] Christo Trejo MD Unavailable [phone] Genna Jo MD Unavailable [phone] Genna Jo MD Unavailable [phone] Encounter Details Date Type Department Care Team (Late st Contact Info) Description 06/05/2019 [facility] [place] Medical Advice [facility] Audiology [address] [address] Kaylen Chairez, AuD [address] [place] [address] Social History Tobacco Use Types Packs/Day Years Used Date Smoking Tobacco: Never Smokeless Tobacco: Never Alcohol Use Standard Drinks/Week Comments Yes 0 (1 standard drink = 0.6 oz pur e alcohol) Social PHQ-2 Answer Date Recorded PHQ-2 Score 0 02/24/2019 Sex and Gender Information Value Date Recorded [...] documented as of this encounter Care Teams Manager Of International Relationship Specialty Start Date End Date Jeniffer Jeff PA-C [facility] [address] [place] [address] PCP - General Physician Box Stamper 02/05/19 Nilo Pate MD [address] [place] [address] 357735 Assigned Neuroscience Provider 02/19/20 11/10/21 Mahesh Shane DPM [address] [facility] [address] [place] [address] Assigned Musculoskeletal Provider 02/19/20 05/06/21 Iraida Bustillo MD [address] [place] [address] [id number] Assigned Surgical Provider 02/19/20 03/18/21 Christo Trejo MD [address] [place] [address] [id number] Assigned OBGYN Provider 02/19/2003/18 Genna Jo MD [address] [place] [address] 381475 Facial Plastic and Reconstructive Surgery 10/27/20 Genna Jo MD [address] [place] [address] [address] [place] [address] Assigned Surgical Provider 03/19/21 documented as of this encounter
--- OUTSIDE RECORDS SUMMARY | 2024-01-06 13:13 | XMS_ITS | Encounter Summary ---
Author Organization [facility] Address [address] [place] [address]. [place] [address] Care Team Providers Care Lion Hunter Name Role Phone Jeniffer Jeff PA-C Primary Care Provider Genna Jo MD Unavailable [phone] Genna Jo MD Unavailable [phone] Encounter Details Date Type Department Care Team (Late st Contact Info) Description 11/06/2022 [facility] [place] [facility] [address] 4th [place] [address] Era Allen RN Social History Tobacco Use Types Packs/Day Years Used Date Smoking Tobacco: Never Smokeless Tobacco: Never Alcohol Use Standard Drinks/Week Comments Yes 0 (1 standard drink = 0.6 oz pur e alcohol) Social PHQ-2 Answer Date Recorded PHQ-2 Score 0 06/14/2021 Sex and Gender Information Value Date Recorded [...] documented as of this encounter Care Teams Lion Hunter Relationship Specialty Start Date End Date Jeniffer Jeff PA-C [facility] [address] [place] [address] PCP - General Physician Property Management Specialist 02/05/19 Genna Jo MD 420 [facility] [address] [place] [address] Facial Plastic and Reconstructive Surgery 10/27/20 Genna Jo MD 420 [facility] [address] [place] [address] Assigned Surgical Provider 03/19/21 documented as of this encounter
--- OUTSIDE RECORDS SUMMARY | 2024-01-06 13:13 | XMS_ITS | Encounter Summary ---
Author Organization [facility] Address [address] [place] [address]. [place] [address] Care Team Providers Care Washer Hand Name Role Phone Jeniffer Jeff PA-C Primary Care Provider Nilo Pate MD Unavailable [phone] Mahesh Shane DPM Unavailable [phone] Iraida Bustillo MD Unavailable Christo Trejo MD Unavailable [phone] Genna Jo MD Unavailable [phone] Genna Jo MD Unavailable [phone] Encounter Details Date Type Department Care Team (Late st Contact Info) Description 12/20/2020 [facility] [place] [facility] [place] [id number] [facility] [address] 4th [place] [address] Genna Jo MD 420 [facility] 396 [place] [address] Social History Tobacco Use Types Packs/Day Years Used Date Smoking Tobacco: Never Smokeless Tobacco: Never Alcohol Use Standard Drinks/Week Comments Yes 0 (1 standard drink = 0.6 oz pur e alcohol) Social PHQ-2 Answer Date Recorded PHQ-2 Score 0 12/07/2020 Sex and Gender Information Value Date Recorded Sex Assigned at Female 10/22/2020 2:38 PM CDT Gender Identity Female 10/22/2020 2:38 PM CDT Sexual Orientation Not on file COVID-19 Exposure Response Date Recorded In the last month, have you been in contact with someone who was confirmed or suspected to have Coronavirus / COVID-19? No / Unsure 12/07/2020 1:45 PM CDT documented as of this encounter Plan of Treatment Not on file documented as of this encounter Visit Diagnoses Not on filedocumented in this encounter Additional Health Concerns Assessment Noted Time PHQ-9 Depression Total Score: 10 019 8:11 AM CDT documented as of this encounter Care Teams Washer Hand Relationship Specialty Start Date End Date Jeniffer Jeff PA-C [facility] [address] [place] [address] PCP - General Physician Fish Hatchery Manager 02/05/19 Nilo Pate MD [address] [place], [place] 9633[address] Assigned Neuroscience Provider 02/19/20 11/10/21 Mahesh Shane DPM [address] [facility] [address] [place] [address] Assigned Musculoskeletal Provider 02/19/20 05/06/21 Iraida Bustillo MD 420 [facility] 396 [place], [place] 9524[address] Assigned Surgical Provider 02/19/20 03/18/21 Christo Trejo MD [address] [place] [address] 400 [place], [place] 2347[address] Assigned OBGYN Provider 02/19/2003/18 Genna Jo MD [address] 564555 Facial Plastic and Reconstructive Surgery 10/27/20 Genna Jo MD [address] [phone] Assigned Surgical Provider 03/19/21 documented as of this encounter
--- OUTSIDE RECORDS SUMMARY | 2024-01-06 13:13 | XMS_ITS | Encounter Summary ---
Author Organization [facility] Address [address] [place] [address] Care Team Providers Care Regional Sales Coordinator Name Role Phone Jeniffer Jeff PA-C Primary Care Provider Nilo Pate MD Unavailable [phone] Mahesh Shane DPM Unavailable [phone] Iraida Bustillo MD Unavailable [phone] Christo Trejo MD Unavailable [phone] Genna Jo MD Unavailable [phone] Genna Jo MD Unavailable [phone] Reason for Visit * Reason Onset Date Comments Appointment 04/05/2020 Encounter Details Date Type Department Care Team (Late st Contact Info) Description 04/05/[address] [facility] [place] [id number] [facility] [address] 4th [place] [address] Iraida Bustillo MD [address] [address] Appointment Social History Tobacco Use Types Packs/Day Years Used Date Smoking Tobacco: Never Smokeless Tobacco: Never Alcohol Use Standard Drinks/Week Comments Yes 0 (1 standard drink = 0.6 oz pur e alcohol) Social PHQ-2 Answer Date Recorded PHQ-2 Score 0 02/24/2019 Comments Yes Sex and Gender Information Value Date Recorded Sex Assigned at Female 10/22/2020 2:38 PM CDT Gender Identity Female 10/22/2020 2:38 PM CDT Sexual Orientation Not on file documented as of this encounter Miscellaneous Notes * Telephone Encounter - AnuragMario arndt - 04/05/2020 10:39 AM CST [facility] Phone Message May a detailed message be left on voicemail: yes Reason for Call: Other: Please call pt back to schedule return appt with Keny in craniofacial clinic. Call center does not schedule these. Action Taken: Other: ent Travel Screening: Not Applicable DE SOLAR SALES CONSULTANT documented in this encounter Plan of Treatment Not on file documented as of this encounter Visit Diagnoses Not on filedocumented in this encounter Additional Health Concerns Assessment Noted Time PHQ-9 Depression Total Score: 10 019 8:11 AM CDT documented as of this encounter Care Teams Regional Sales Coordinator Relationship Specialty Start Date End Date Jeniffer Jeff PA-C [facility] [address] [place] [address] PCP - General Physician Crosscutter 02/05/19 Nilo Pate MD [address] [place] [address] Assigned Neuroscience Provider 02/19/20 11/10/21 Mahesh Shane DPM [id number] [place] [address] 300 [place] [address] Assigned Musculoskeletal Provider 02/19/20 05/06/21 Iraida Bustillo MD [address] [place] [address] 396 [place] [address] Assigned Surgical Provider 02/19/20 03/18/21 Christo Trejo MD [address] [place], [place] 304144 Assigned OBGYN Provider 02/19/2003/18 Genna Jo MD [address] [id number] Facial Plastic and Reconstructive Surgery 10/27/20 Genna Jo MD [address] [phone] Assigned Surgical Provider 03/19/21 documented as of this encounter
== END 2024-01-06 13:11 | disposition home or self-care (01) ==
PROVIDERS: PCP Physician Assistant Medical; Visit Provider Physician Assistant Medical
DX: Z00.00 Encounter for general adult medical examination without abnormal findings (principal); M25.50 Pain in unspecified joint; R53.83 Other fatigue; R76.8 Other specified abnormal immunological findings in serum
CPT/HCPCS: 82085; 82306; 82550; 82607; 83516; 84182; 84550; 86039; 86140; 86200; 86235; 86431; 86618; 86812

== ENCOUNTER 2024-03-20 08:09 | Outpatient (CLI) | payer BC, SELFPAY ==
--- OUTSIDE RECORDS SUMMARY | 2024-03-20 08:12 | XMS_ITS | Referral Summary ---
Author Organization [facility] Address [address] [place] [address]. [place] [address] Care Team Providers Care Leather Skinner Name Role Phone Jeniffer Jeff PA-C Primary Care Provider Genna Jo MD Unavailable [phone] Genna Jo MD Unavailable [phone] Encounters * This document contains information received from the source organization and may not represent a complete record from that organization. Date Type Department Care Team Description 02/28/2024 Travel from Last 3 Months Allergies Active Allergy Reactions Criticality Noted Date Comments Ondansetron Nausea 02/05/2019 Medications * This document contains information received from the source organization and may not represent a complete record from that organization. 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 Immunizations [...] School Help Needed Not on file 01/18 Comments No Sex and Gender Information Value Date Recorded Sex Assigned at Female 10/22/2020 2:38 PM CDT Legal Sex Female 9:26 AM CDT Gender Identity Female 10/22/2020 2:38 PM CDT Sexual Orientation Not on file Last Filed Vital Signs Vital Sign Reading Time Taken Comments Blood Pressure 111/75 06/13/2022 2:33 PM WELT CUTTER Pulse 78 06/13/2022 2:33 PM WELT CUTTER Temperature 37 C (98.6 F) 12/07/2020 2:17 PM CDT Respiratory Rate 16 05/10/2020 4:08 PM WELT CUTTER Oxygen Saturation 97% 06/13/2022 2:33 PM WELT CUTTER Inhaled Oxygen Concentration - - Weight 79.8 kg (176 lb) 06/13/2022 2:33 PM WELT CUTTER Height 172.7 cm (5' 8) 06/13/2022 2:33 PM WELT CUTTER Body Mass Index 26.76 06/13/2022 2:33 PM WELT CUTTER Plan of Treatment Not on file Procedures Procedure Name Priority Date/Time Associated Diagnosis Comments OR CHEMODENERVATION, FACE NERVE MUSCLE Routine 02/28/2024 9:37 AM CDT 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 POCT Final Result POINT OF CARE TEST, GLUCOSE from Last 3 Months or Most Recently Relevant to Health Maintenance [place] Care Teams Leather Skinner Relationship Specialty Start Date End Date Jeniffer Jeff PA-C [facility] [address] [place] [address] PCP - General Physician Tutoring Clinician 02/05/19 Genna Jo MD [address] [place] [address] Facial Plastic and Reconstructive Surgery 10/27/20 Genna Jo MD [address] [place] [address] 114335 Assigned Surgical Provider 03/19/21
--- OUTSIDE RECORDS SUMMARY | 2024-03-20 08:12 | XMS_ITS | Encounter Summary ---
Author Organization [facility] Address [address] [place] [address]. [place] [address] Care Team Providers Care Learning And Development Analyst Name Role Phone Jeniffer Jeff PA-C Primary Care Provider Nilo Pate MD Unavailable [phone] Mahesh Shane DPM Unavailable [phone] Iraida Bustillo MD Unavailable [phone] Christo Trejo MD Unavailable [phone] Genna Jo MD Unavailable [phone] Genna Jo MD Unavailable [phone] Reason for Visit * Reason Onset Date Comments Appointment 04/05/2020 Encounter Details Date Type Department Care Team (Late st Contact Info) Description 04/05/2020 Telephone [facility] [place] [address]64[address] [facility] [address] 4th [place] [address] Iraida Bustillo MD 420 [facility] 396 [place] [address] Appointment Social History Tobacco Use [...] encounter Miscellaneous Notes * Telephone Encounter - Mario Onofre - 04/05/2020 10:39 AM CST [facility] Phone Message May a detailed message be left on voicemail: yes Reason for Call: Other: Please call pt back to schedule return appt with Keny in craniofacial clinic. Call center does not schedule these. Action Taken: Other: ent Travel Screening: Not Applicable ER BELT SPLICER documented in this encounter Plan of Treatment Not on file documented as of this encounter Visit Diagnoses Not on filedocumented in this encounter Additional Health Concerns Assessment Noted Time PHQ-9 Depression Total Score: 10 019 8:11 AM CDT documented as of this encounter Care Teams Learning And Development Analyst Relationship Specialty Start Date End Date Jeniffer Jeff PA-C [facility] [address] [place] [address] PCP - General Physician Leather Case Finisher 02/05/19 Nilo Pate MD [address] [place] [address]645 Assigned Neuroscience Provider 02/19/20 11/10/21 Mahesh Shane DPM [address] [facility] 300 [place], [place] [address] Assigned Musculoskeletal Provider 02/19/20 05/06/21 Iraida Bustillo MD [address] [place] [address] [id number] Assigned Surgical Provider 02/19/20 03/18/21 Christo Trejo MD [address] [facility] 400 [place] [address] Assigned OBGYN Provider 02/19/2003/18 Genna Jo MD 420 [facility] 396 [place], [place] [address] Facial Plastic and Reconstructive Surgery 10/27/20 Genna Jo MD [address] [id number] Assigned Surgical Provider 03/19/21 documented as of this encounter
--- OUTSIDE RECORDS SUMMARY | 2024-03-20 08:12 | XMS_ITS | Encounter Summary ---
Author Organization [facility] Address [address] [place] [address] Care Team Providers Care Rv Repair Technician Name Role Phone Jeniffer Jeff PA-C Primary Care Provider Nilo Pate MD Unavailable + [phone] Mahesh Shane DPM Unavailable [phone] Iraida Bustillo MD Unavailable [phone] Christo Trejo MD Unavailable [phone] Genna Jo MD Unavailable [phone] Genna Jo MD Unavailable [phone] Encounter Details Date Type Department Care Team (Late st Contact Info) Description 06/05/2019 [facility] Medical Advice [facility] [address] [address] Kaylen Chairez, AuD 909 [place] [address] Social History Tobacco Use Types Packs/Day Years Used Date Smoking Tobacco: Never Smokeless Tobacco: Never Alcohol Use Standard Drinks/Week Comments Yes 0 (1 standard drink = 0.6 oz pur e alcohol) Social PHQ-2 Answer Date Recorded PHQ-2 Score 0 02/24/2019 Comments Unknown Sex and Gender Information Value Date Recorded [...] documented as of this encounter Care Teams Rv Repair Technician Relationship Specialty Start Date End Date Jeniffer Jeff PA-C [facility] [address] [place] [address] PCP - General Physician Lime Kiln Worker Helper 02/05/19 Nilo Pate MD 9[address] [place], [place] [address] Assigned Neuroscience Provider 02/19/20 11/10/21 Mahesh Shane DPM [address] [facility] [address] [place] [address] Assigned Musculoskeletal Provider 02/19/20 05/06/21 Iraida Bustillo MD [address] [address] Assigned Surgical Provider 02/19/20 03/18/21 Christo Trejo MD [address] [facility] 400 [place], [place] [phone] Assigned OBGYN Provider 02/19/2003/18 Genna Jo MD [address] 865735 Facial Plastic and Reconstructive Surgery 10/27/20 Genna Jo MD [address] [address] Assigned Surgical Provider 03/19/21 documented as of this encounter
--- OUTSIDE RECORDS SUMMARY | 2024-03-20 08:12 | XMS_ITS | Clinical Summary ---
Author Organization [place] Address [address] [place] [address]. 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 Date Type Department Care Team Description 02/28/2024 Travel from Last 3 Months Immunizations Name [...] Comments Blood Pressure 111/75 06/13/2022 2:33 PM TURNTABLE WORKER Pulse 78 06/13/2022 2:33 PM TURNTABLE WORKER Temperature 37 C (98.6 F) 12/07/2020 2:17 PM CDT Respiratory Rate 16 05/10/2020 4:08 PM TURNTABLE WORKER Oxygen Saturation 97% 06/13/2022 2:33 PM TURNTABLE WORKER Inhaled Oxygen Concentration - - Weight 79.8 kg (176 lb) 06/13/2022 2:33 PM TURNTABLE WORKER Height 172.7 cm (5' 8) 06/13/2022 2:33 PM TURNTABLE WORKER Body Mass Index 26.76 06/13/2022 2:33 PM TURNTABLE WORKER Plan of Treatment Health Maintenance Due Date [...] 12/06/2029 12/07/2019, 03/05/2016, 09/01/2007, Additional history exists RSV VACCINE (1 - 1-dose 75+ series) 2057 MENINGITIS IMMUNIZATION Aged Out 11/05/2000 No l [...] Procedure Name Priority Date/Time Associated Diagnosis Comments [place] CHEMODENERVATION, FACE NERVE MUSCLE Routine 02/28/2024 9:37 AM CDT 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 [place] CHEMODENERVATION MUSCLE NECK UNILAT Routine 02/28/2024 9:37 [...] 6:05 AM CDT 02/07/2019 6:20 AM CDT us Iraida Bustillo MD [facility] POCT Final Result POINT OF CARE TEST, GLUCOSE from Last 3 Months or Most Recently Relevant to Health Maintenance [place] Care Teams Pipe Bender Relationship Specialty Start Date End Date Jeniffer Jeff PA-C [facility] [address] [place] [address] PCP - General Physician Patrol Driver 02/05/19 Genna Jo MD [address] [place] [address]65 Facial Plastic and Reconstructive Surgery 10/27/20 Genna Jo MD [address] [place] [address] [id number] Assigned Surgical Provider 03/19/21
--- OUTSIDE RECORDS SUMMARY | 2024-03-20 08:12 | XMS_ITS | Clinical Summary ---
Author Organization [facility] Address [place], [place] [address] Care Team Providers Care Top Coater Name Role Phone Jeniffer Jeff PA-C Primary Care Provider + [phone] Allergies Active Allergy Reactions Criticality Noted Date [...] Comments Blood Pressure 120/80 05/05/2020 12:59 PM COMMERCIAL UNDERWRITER Pulse 67 05/05/2020 12:59 PM COMMERCIAL UNDERWRITER Temperature 36.5 C (97.7 F) 05/05/2020 12:59 PM COMMERCIAL UNDERWRITER Respiratory Rate 12 05/05/2020 12:59 PM COMMERCIAL UNDERWRITER Oxygen Saturation 100% 05/05/2020 12:59 PM COMMERCIAL UNDERWRITER Inhaled Oxygen Concentration - - Weight 81.6 kg (180 lb) 05/05/2020 12:59 PM COMMERCIAL UNDERWRITER Height 172.7 cm (5' 8) 05/05/2020 12:59 PM COMMERCIAL UNDERWRITER Body Mass Index 27.37 05/05/2020 12:59 PM COMMERCIAL UNDERWRITER Plan of Treatment Health Maintenance Due Date Last Done Comments Tdap 1993 Depression screening for age 12+ 1994 HIV for age 15-65 1997 BMI (ht and wt on same day) for age 18+ 2000 Hepatitis C screening for ag e 18-79 2000 Tetanus booster 2002 COVID-19 vaccine series ( season) 2023 Influenza for age 9-49 12/29/2023 Pap test for age 21-65 08/04/2024 , 08/04/2021, 06/30/2018 Pneumococcal series for age 6-64 Aged Out No longer eligible b ased on patient's age to complete this topic Procedures Procedure Name Priority Date/Time Associated Diagnosis Comments HPV HIGH RISK Routine 08/04/2021 12:00 PM CDT from Last 3 Months or Most Recently Relevant to Health Maintenance Results * HPV HIGH RISK (08/04/2021 12:00 PM CDT) TYPE 16 Negative Negative 08/09/2021 11:24 AM CDT [facility] TYPE 18 Negative Negative 08/09/2021 11:24 AM CDT [facility] OTHER HIGH RISK TYPES Negative Negative 08/09/2021 11:24 AM CDT [facility] Other (Cervical/Vagina l) 08/04/2021 12:00 PM CDT 08/08/2021 7:34 AM CDT Narrative [facility] - 08/09/2021 11:24 AM CDT HPV types 16, 18, 31, 33, 35, 39, 45, 51, 52, 56, 58, 59, 66 and 68 DNA were undetectable or below the pre-set threshold. Methodology: Lilia Naty 4800 HPV Test Jeniffer Jeff PA-C [facility] [address] [place] [address], from Last 3 Months or Most Recently Relevant to Health Maintenance Care Teams Top Coater Relationship Specialty Start Date End Date Jeniffer Jeff PA-C [address] [facility] [address] [place] [address] PCP - General Emergency Medicine 04/24/20
--- OUTSIDE RECORDS SUMMARY | 2024-03-20 08:12 | XMS_ITS | Encounter Summary ---
Author Organization [facility] Address [address] [place] [address]. [place] [address] Care Team Providers Care Supervisor Kennel Name Role Phone Jeniffer Jeff PA-C Primary Care Provider Genna Jo MD Unavailable [phone] Genna Jo MD Unavailable [phone] Encounter Details Date Type Department Care Team (Late st Contact Info) Description 11/06/2022 [facility] Medical Advice [facility] [address] 4th [place] [address] Era Allen RN Social History Tobacco Use Types Packs/Day Years Used Date Smoking Tobacco: Never Smokeless Tobacco: Never Alcohol Use Standard Drinks/Week Comments Yes 0 (1 standard drink = 0.6 oz pur e alcohol) Social PHQ-2 Answer Date Recorded PHQ-2 Score 0 06/14/2021 Comments No Sex and Gender Information Value [...] documented as of this encounter Care Teams Supervisor Kennel Relationship Specialty Start Date End Date Jeniffer Jeff PA-C [facility] [address] [place] [address] PCP - General Physician Distributor Cleaner 02/05/19 Genna Jo MD [address] [place] [id number] Facial Plastic and Reconstructive Surgery 10/27/20 Genna Jo MD [address] [place] [address] [id number] Assigned Surgical Provider 03/19/21 documented as of this encounter
--- OUTSIDE RECORDS SUMMARY | 2024-03-20 08:12 | XMS_ITS | Encounter Summary ---
Author Organization [facility] Address [address] [place] [address]. [place] [address] Care Team Providers Care Hard Metals Engraver Hand Name Role Phone Jeniffer Jeff PA-C Primary Care Provider Nilo Pate MD Unavailable + [phone] Mahesh Shane DPM Unavailable [phone] Iraida Bustillo MD Unavailable [phone] Christo Trejo MD Unavailable [phone] Genna Jo MD Unavailable [phone] Genna Jo MD Unavailable [phone] Encounter Details Date Type Department Care Team (Late st Contact Info) Description 12/20/2020 [facility] Medical Advice [facility] [place] [address]65[address] [facility] [address] 4th [place] [address] Genna Jo MD 420 [facility] 396 [place] [address] Social History Tobacco Use Types Packs/Day Years Used Date Smoking Tobacco: Never Smokeless Tobacco: Never Alcohol Use Standard Drinks/Week Comments Yes 0 (1 standard drink = 0.6 oz pur e alcohol) Social PHQ-2 Answer Date Recorded PHQ-2 Score 0 12/07/2020 Comments No Sex and Gender Information Value [...] documented as of this encounter Care Teams Hard Metals Engraver Hand Relationship Specialty Start Date End Date Jeniffer Jeff PA-C [facility] [address] [place] [address] PCP - General Physician Primary Teaching Assistant 02/05/19 Nilo Pate MD 909 [place], [place] [address] Assigned Neuroscience Provider 02/19/20 11/10/21 Mahesh Shane DPM [address] [facility] [address] [place], [place] [address] Assigned Musculoskeletal Provider 02/19/20 05/06/21 Iraida Bustillo MD 420 [facility] 396 [place], [place] [address] Assigned Surgical Provider 02/19/20 03/18/21 Christo Trejo MD [address] [place] [address] [id number] Assigned OBGYN Provider 02/19/2003/18 Genna Jo MD 420 [facility] 396 [place] [address] Facial Plastic and Reconstructive Surgery 10/27/20 Genna Jo MD 420 [facility] 396 [place], [place] [phone] Assigned Surgical Provider 03/19/21 documented as of this encounter
--- OUTSIDE RECORDS SUMMARY | 2024-03-20 08:12 | XMS_ITS | Encounter Summary ---
Author Organization [place] Address [address] [place] [address] Care Team Providers Care Electrotyper Apprentice Name Role Phone Jeniffer Jeff PA-C Primary Care Provider Genna Jo MD Unavailable [phone] Genna Jo MD Unavailable [phone] Encounter Details Date Type Department Care Team (Latest Contact Info) Description 02/28/2024 Travel Social History Tobacco Use Types Packs/Day [...] documented as of this encounter Care Teams Electrotyper Apprentice Relationship Specialty Start Date End Date Jeniffer Jeff PA-C [facility] [address] [place] [address] PCP - General Physician Perfusionist 02/05/19 Genna Jo MD 420 [facility] 396 [place], [place] [address] Facial Plastic and Reconstructive Surgery 10/27/20 Gnena Jo MD 420 [facility] 396 [place], [place] [address] Assigned Surgical Provider 03/19/21 documented as of this encounter
--- NOTE | 2024-03-20 08:15 | CRLHL7_ITS ---
For Patients: As a result of the Century Cures Act, medical imaging exams and procedure reports are released immediately into your electronic medical record. You may view this report before your referring provider. If you have questions, please contact your health care provider. BILATERAL SCREENING MAMMOGRAM WITH COMPUTER-AIDED DETECTION AND TOMOSYNTHESIS TECHNIQUE: CC and MLO views were obtained. These mammographic images have been obtained using full-field digital technique. These mammographic images were interpreted with the benefit of computer-aided detection. Breast tomosynthesis was used in this interpretation. COMPARISON FILM: 01/22/23, 10/28/20. FINDINGS: There are scattered areas of fibroglandular density. IMPRESSION: There is no radiographic evidence for malignancy. ASSESSMENT: BI-RADS Category 1: Negative RECOMMENDATION: Routine screening mammogram in 1 year. A lay language report of this examination will be provided to the patient. CHASE RIGGS M.D. Diagnostic Radiologist [email or web address] Transcribed: 2:[address]/Dictated by: Chase Riggs MD @ 03/20/2024 11:05:00 AM (Electronically Signed)
== END 2024-03-20 08:10 | disposition home or self-care (01) ==
LOC: MAMMO 08:10
PROVIDERS: PCP Physician Assistant Medical; Visit Provider Physician Assistant Medical
DX: Z12.31 Encounter for screening mammogram for malignant neoplasm of breast (principal)
CPT/HCPCS: 77063; 77067